=== PATIENT | female | born 1985 | race Caucasian/White ===

== ENCOUNTER → 2017-01-04 | Outpatient (CLI) | payer BC, OTHER ==
[~2017-01-04] MED LIST: ACET-1256 PO; ALBU4TAB10 PO; APRI28 PO; BACLOFEN IT; CITA20TA4 PO; CLON1INJ2; FLUT0.15; FRS/40 PO; HYDR-3126 PO; IBUP-1450 PO; LACT10SO17 PO; LOVA40TA4 PO; MULT-506 PO; OXYC1TAB3 PO; POTA20TA16 PO; VNTHFA/IN INH; [UNRECOGNIZED DRUG - OTHER]
--- NOTE | 2017-01-04 12:49 | DIAGNOSTIC IMAGING REPORT ---
THORACOLUMBAR SPINE 2 VIEWS CLINICAL HISTORY: Fatigue, spasticity, CEREBRAL PALSY pain COMPARISON STUDY: 05/03/2016 FINDINGS: Moderate degenerative change throughout the entire lumbar region. 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 Infusion pump overlying the left abdominal region unchanged. No acute or interval finding. Lumbar scoliosis. IMPRESSION: Degenerative and congenital changes as described. No acute or interval process. Electronically signed by: Dilshad Perez M.D. 01/04/2017 12:47 PM Dictated Date/Time: 01/04/2017 12:45 PM
== END | disposition home or self-care (01) ==
LOC: C.RADBC 11:48
PROVIDERS: ATTEND Physician Assistant
DX: R53.83 Other fatigue (principal); G80.1 Spastic diplegic cerebral palsy

== ENCOUNTER 2017-04-25 07:18 | Day surgery (SDC) | payer BC, OTHER ==
[2017-04-18 13:15] LABS: BASO % 0.2 %; BASO ABS # 0.02 K/uL (0-0.2); COMPLETE YES; EOS % 0.7 %; HEMATOCRIT 39.1 % (37-47); IG% 0.2 %; LYMPH % 23.4 %; MEAN CELL VOLUME 88.9 fL (80-100); MEAN CORPUSCULAR HEMOGLOBIN 29.3 pg (25-34); MEAN PLATELET VOLUME 11.5 fL (7.4-10.4); MONO % 6.7 %; NEUT % 68.8 %; PLATELET COUNT 324 K/uL (130-400); WHITE BLOOD COUNT 9.84 K/uL (4.8-10.8)
[2017-04-19 12:34] LABS: URINE APPEARANCE CLEAR (CLEAR); URINE BILIRUBIN NEG (NEG); URINE COLOR YELLOW; URINE EPITHELIAL CELL AUTO >30 /lpf (0-5); URINE NITRITE NEG (NEG); UROBILINOGEN NEG (NEG)
[2017-04-19 12:42] LABS: MANUAL MICROSCOPIC REQUIRED? NO; REVIEW REQ? YES
[2017-04-19 12:54] LABS: URINE MUCUS PRESENT (NONE PRSENT)
--- NOTE | 2017-04-24 14:45 | History and Physical ---
History & Physical Date of Service Apr 24, 2017. History & Physical Plan of care discussed with Dr. Buckley CHIEF COMPLAINT: Intractable rigidity and spasticity of extremities HISTORY OF PRESENT ILLNESS: Anna Harrison is a 32 year old white female that has a chronic history of rigidity and spasticity of her extremities secondary to cerebral palsy. Patient is wheelchair bound any has significant limitation into her ADL activities due to her symptoms. She has an intrathecal Baclofen pump implanted which is controlling the spasticity fairly well. Patient does also have complex regional pain syndrome described as a burning, neuropathic pain in her bilateral distal upper and lower extremities, and in non-dermatomal fashion. Patient has tried Percocet, Fentanyl, and Butrans without any significant pain relief. Patient denies any constitutional complaints or extremity weakness. PAST MEDICAL HISTORY: 1. Cerebral palsy 2. Neurogenic bladder 3. Depressive disorder PAST SURGICAL HISTORY: 1. History of jaw surgery 2. History of eye surgery 2 3. Right hip tendon release 4. History of cholecystectomy 5. Dorsal rizotomy SOCIAL HISTORY: Mrs. Harrison is a student. She lives alone and is a former smoker. Occasional alcohol use. No illicit drug use. ALLERGIES: Adhesives, chloral hydrate, fentanyl, gabapentin, latex, midazolam, morphine, Zofran, pentobarbital, phenytoin, sulfa antibiotics MEDICATIONS: 1. control pills: 1 tablet daily 2. Albuterol inhaler 1 puff every 4 hours as needed 3. Celexa 40 mg at bedtime 4. Flonase 2 sprays in each nostril daily 5. Lasix 40 mg twice daily 6. Multivitamin one tablet daily 7. Potassium chloride 20 mEq daily REVIEW OF SYSTEMS: Denies any constitutional, cardiac, pulmonary, neurological, GI, , extremity, endocrine, neuro, ENT, dermatological, or musculoskeletal complaints other than stated in HPI PHYSICAL EXAMINATION: VITAL SIGNS: Per admission GENERAL: Anna Harrison is a 32-year-old white female that appears her stated age. She is sitting quietly in a motorized wheelchair, in no acute distress. Speech and cognition is intact. Mood and affect is appropriate. HEAD: Normocephalic; atraumatic. EYES: Pupils are round, equal, and reactive to light ENT: No external ear discharge or lesions. No rhinorrhea or epistaxis. No mucosal lesions. NECK: Full ROM; trachea is midline; no TTP; no cervical lymphadenopathy. PULM: Clear to auscultation. No wheezes, rales, or rhonchi. CHEST: Regular chest respiration and excursion. EXTREMITIES: Occasional spontaneous upper and lower extremity spasticity. There is flexion rigidity of the lower extremities. Knees can be extended to 75 degrees. There is spasm noted of the bilateral gastrocnemius and quadriceps. Mild edema of the bilateral legs. Legs are erythematous, shiny, and cold to the touch. Decreased sensation of the bilateral legs. BACK: No midline or facet tenderness. No SI joint tenderness. SKIN: No lesions, erythema, or rashes noted. ASSESSMENT: 1. Chronic intractable pain secondary to complex region pain syndrome of the bilateral lower extremities 2. 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 As the patient has developed complex regional pain syndrome in to the bilateral lower extremities and is experiencing significant side effects from pain medications including Percocet, fentanyl, and Butrans patches it is recommended that the patient undergo an intrathecal trial of hydromorphone for possible increased pain relief. Should the patient receive adequate pain relief from the trial, hydromorphone may be then introduced into the pump to provide pain relief. Risks and benefits reviewed with the patient. Procedure was explained to the patient and she understands. Patient would like to proceed with the procedure. She will undergo the intrathecal hydromorphone trial on 04/25/17.
[2017-04-25] VITALS (8 sets, daily range): BP systolic 133–169; BP diastolic 78–92; PULSE 84–116; TEMP 36.9–37.2; O2SAT 93–98; Ht 161.3 cm; Wt 64.0 kg
[~2017-04-25] VITALS: Ht 161.3 cm; Wt 64.0 kg
[~2017-04-25 07:18] MED LIST changes: -ACET-1256 PO; -CLON1INJ2; -HYDR-3126 PO; +HYDROMORPHONE HCL IV SCH; -IBUP-1450 PO; -LACT10SO17 PO; -LOVA40TA4 PO; -OXYC1TAB3 PO; +VANCOMYCIN 1GM/270ML NSS IV SCH; -VNTHFA/IN INH; -[UNRECOGNIZED DRUG - OTHER]
[2017-04-25] MEDS ORDERED: HYDROMORPHONE HCL IV SCH (07:30)
[2017-04-25] MEDS ORDERED: HYDROMORPHONE HCL IT SCH (07:30)
[2017-04-25] MEDS ORDERED: VNTHFA/IN INH (07:55)
[2017-04-25] MEDS ORDERED: SODIUM CHLORIDE 0.9% INJ 10 ML VIAL ONE (08:26)
[2017-04-25] MEDS ORDERED: LIDOCAINE HCL 2% 2 ML VIAL (20MG/ML) ONE (08:39)
[2017-04-25] MEDS ORDERED: LACTATED RINGER'S 1000ML 1,000 ML IV SCH (09:23)
[2017-04-25] MEDS ORDERED: NALOXONE HCL 0.4 MG/1 ML VIAL/CARP IV PRN (09:30)
[2017-04-25] MEDS ORDERED: NURSING VERBAL MED ORDER ONE (11:30)
--- NOTE | 2017-04-25 13:57 | Discharge Instructions ---
Discharge Instructions Date of Service Apr 25, 2017. Visit Reason for Visit: Complex Regional Pain Syndrome;Z01.812,G80.9,G90.5 Discharge Discharge Diagnosis / Problem: Complex Regional Pain Syndrome Discharge Goals Goal(s): Decrease discomfort, Improve function Activity Recommendations Activity Recommendations: No Limitations Anesthesia . Post Anesthesia Instructions: If you have had General Anesthesia or IV Sedation: * Do not drive today. * Resume driving when surgeon permits. * Do not make important decisions or sign legal documents today. * Call surgeon for: * Temperature elevations greater than 101 degrees F. * Uncontrollable pain. * Excessive bleeding. * Persistent nausea and vomiting. * Medication intolerance (nausea, vomiting or rash). * For nausea and vomiting use only clear liquids such as: tea, soda, bouillon until nausea subsides, then gradually increase diet as tolerated. * If you have any concerns or questions, call your surgeon's office. If physician is unavailable and it is an emergency, call 911 or go to the nearest emergency room. . Instructions Instructions / Follow-Up . * Change dressings daily. Apply sterile dry gauze. * Call [facility] [phone] or go to the nearest emergency room if he experience high fevers, new back pain, new neurological symptoms such as numbness or weakness in the lower extremity or new bowel bladder incontinence. Also of call if he experience a headache that is positional. * Wear abdominal binder. * No showers for 3 days. * Resume normal activity. No repetitive bending, twisting or reaching overhead for 2 weeks. Do not lift more than 5 pounds for 2 weeks. . Follow-Up Follow-Up: 1 week in office for wound check Diet Recommendations Home Diet: no limitations Pending Studies Studies pending at discharge: no Medical Emergencies . Who to Call and When: Medical Emergencies: If at any time you feel your situation is an emergency, please call 911 immediately. . Non-Emergent Contact Non-Emergency issues call your: Primary Care Provider Call Non-Emergent contact if: temperature is above 101, wound has increased pain . . "Provider Documentation" section prepared by Gwyn Buckley. . [place] Drug Monitoring Program Search Results: patient reviewed within database
--- NOTE | 2017-04-25 14:07 | Pain Clinic Procedure Note ---
Pain Management Procedure Note Date of Procedure Apr 25, 2017. Procedure Description Procedure: Lumbar puncture hydromorphone trial Procedure Time Out: side/site verified, patient ID confirmed, correct procedure Consent Obtained: written Time Procedure Started: 830 Performed By: Dr. Buckley Indications: diagnostic Contraindications: none Pre Procedure Vital Signs Date Time Temp Pulse Resp B/P (MAP) Pulse Ox O2 Delivery O2 Flow Rate FiO2 04/25/17 09:12 94 20 138/92 04/25/17 09:09 96 18 04/25/17 07:58 36.9 84 20 140/86 (104) 94 Room Air ASA Class: 3 Description: INTRATHECAL HYDROMORPHONE TRIAL Hydromorphone 0.125 mg in PFNSS given at 8:50 at approximate L3/L4 level after sterile prep. Diagnosis: Complex Regional Pain Syndrome. Intrathecal injection level: Approximate L3/L4 Surgeon: Dr. Buckley EBL: 0 Complications: None Medications injected: Hydromorphone 0.125 mg Prior to starting, the Patients diagnosis and the procedure were reviewed with the patient in detail. Possible risks, complications and alternative therapies were also reviewed. Patients questions were answered. Informed consent was obtained. Allergies and medication list was reviewed. The patient was brought to the operating room and placed in prone position on the table. Immediately prior to starting the procedure, a time out was conducted with the staff and the patient where the patient was identified. Lumbosacral area was prepped with DuraPrep and Betadine solution. Sterile drapes were applied. Skin and soft tissue over the spinous L3 spinous with 1 mL of 1% Xylocaine using a 25 gauge needle. Midline approach was utilized. A 24 gauge, 3.5 inch Pjunk spinal needle was then inserted through the anesthetized area and advanced under fluoroscopic guidance through the intraspinous ligaments. C-arm was then turned to a true lateral view and the needle was advanced through the ligamentum flavum into the intrathecal. Upon entering the intrathecal space the patient did not experience pain or paresthesia. Bevel of the needle was directed in the cephalad direction. Next, 0.125 mg hydromorphone was injected via the the needle gradually. Patient did not experience any pain, paresthesia or discomfort throughout the injection. Needle was withdrawn. Hemostasis was noted. Sterile dressing was applied. Patient was then taken to the recovery room. Complications: none Patient Tolerated Procedure: well Post-Procedure Vital Signs: Vital Signs Date Time Temp Pulse Resp B/P (MAP) Pulse Ox O2 Delivery O2 Flow Rate FiO2 04/25/17 09:12 94 20 138/92 04/25/17 07:58 36.9 94 Room Air Discharge Instructions: reviewed & understood
== END 2017-04-25 15:15 | disposition home or self-care (01) ==
LOC: C.ACU 07:18
PROVIDERS: ATTEND Anesthesiology
DX: G90.50 Complex regional pain syndrome I, unspecified (principal); G80.9 Cerebral palsy, unspecified; N31.9 Neuromuscular dysfunction of bladder, unspecified; F32.9 Major depressive disorder, single episode, unspecified; Z90.49 Acquired absence of other specified parts of digestive tract; Z87.891 Personal history of nicotine dependence; Z79.3 Long term (current) use of hormonal contraceptives

== ENCOUNTER 2017-05-03 17:07 | Emergency (ER) | payer BC, OTHER ==
[~2017-05-03] VITALS: Ht 152.4 cm; Wt 65.0 kg
[~2017-05-03 17:07] MED LIST changes: -ALBU4TAB10 PO; -HYDROMORPHONE HCL IV SCH; -VANCOMYCIN 1GM/270ML NSS IV SCH; +VNTHFA/IN INH
[2017-05-03 17:13] VITALS: TEMP 36.7; Ht 152.4 cm; Wt 65.0 kg
[2017-05-03] MEDS ORDERED: TRAMADOL HCL 50 MG TAB PO STA (17:29)
[2017-05-03] MEDS ORDERED: HYDROmorphone INJ 1 MG/ML SYR IM ONE (17:30)
[2017-05-03] MEDS ORDERED: HYDROmorphone INJ 0.5 MG/0.5 ML SYR IV STA ×3 (17:39→23:31)
[2017-05-03] MEDS ORDERED: DiphenhydrAMINE HCL 50 MG/ML VIAL IV STA (17:39)
[2017-05-03 19:05] LABS: BASO % 0.2 %; BASO ABS # 0.02 K/uL (0-0.2); COMPLETE YES; EOS % 0.7 %; HEMATOCRIT 41.4 % (37-47); IG% 0.2 %; LYMPH % 18.5 %; LYMPH ABS # 2.35 K/uL (1.2-3.4); MEAN CELL VOLUME 88.8 fL (80-100); MEAN CORPUSCULAR HEMOGLOBIN 28.3 pg (25-34); MEAN CORPUSCULAR HGB CONC 31.9 g/dl (32-36); MEAN PLATELET VOLUME 11.3 fL (7.4-10.4); MONO % 5.9 %; NEUT % 74.5 %; PLATELET COUNT 409 K/uL (130-400); RED BLOOD COUNT 4.66 M/uL (4.2-5.4); WHITE BLOOD COUNT 12.69 K/uL (4.8-10.8)
--- NOTE | 2017-05-03 19:11 | DIAGNOSTIC IMAGING REPORT ---
CHEST ONE VIEW PORTABLE CLINICAL HISTORY: 32 years-old Female presenting with fall . TECHNIQUE: Portable upright AP view of the chest was obtained. COMPARISON: 01/16/2015. FINDINGS: Cardiomediastinal silhouette normal. Lungs and pleural spaces clear. Osseous structures normal. celebrity chef entrepreneur media personality projects over the upper abdomen. IMPRESSION: 1. No acute cardiopulmonary disease. Electronically signed by: Sam Womack M.D. 05/03/2017 7:09 PM Dictated Date/Time: 05/03/2017 7:07 PM
--- NOTE | 2017-05-03 19:13 | DIAGNOSTIC IMAGING REPORT ---
R FEMUR 2 VIEWS ROUTINE CLINICAL HISTORY: 32 years-old Female presenting with r leg pain . TECHNIQUE: Frontal and lateral views of the right femur were obtained. COMPARISON: None. FINDINGS: Buttress plate and screw fixation of the right femoral neck and proximal metaphysis. Chronic deformity of the right femur with coxa valga deformity and chronic subluxation of the right hip joint. This may be due to dysplasia of the acetabulum or chronic posttraumatic or degenerative deformity. Visualized portion of the bony pelvis demonstrates osteopenia but no fracture. Obliquely oriented fracture of the distal femoral diaphysis with one half shaft width medial and posterior displacement of the distal fracture fragment. 2.6 cm of foreshortening noted. IMPRESSION: Obliquely oriented fracture of the distal femoral diaphysis with one half shaft width displacement and foreshortening as above. Electronically signed by: Sam Womack M.D. 05/03/2017 7:12 PM Dictated Date/Time: 05/03/2017 7:09 PM
[2017-05-03] MEDS ORDERED: SODIUM CHLORIDE 0.9% 1000ML 1,000 ML IV STA ×3 (19:26→23:31)
--- NOTE | 2017-05-03 19:26 | DIAGNOSTIC IMAGING REPORT ---
PELVIS 1 OR 2 VIEW ROUTINE CLINICAL HISTORY: 32 years-old Female presenting with r leg pain, fall. TECHNIQUE: Single frontal view the pelvis was obtained. COMPARISON: None. FINDINGS: Buttress plate and screw fixation of the right femoral neck and proximal metaphysis. 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 Dysplastic appearance of the right acetabulum may be congenital or posttraumatic or degenerative. Similar dysplastic appearance of the left acetabulum with absence of the left femoral head and neck, possibly postsurgical or posttraumatic. Osteopenia limits evaluation for nondisplaced fracture. Sacroiliac joints and pubic symphysis intact. No gross evidence of a fracture of the bony pelvis. An medical record consultant projects over the left lower quadrant. Mild gaseous distention of bowel. Moderate stool burden noted in the cecum or rectum. IMPRESSION: 1. Allowing for osteopenia and chronic deformities, no evidence of acute osseous injury of the bony pelvis. 2. Chronic deformities of the bilateral hips and acetabula as above. Electronically signed by: Sam Womack M.D. 05/03/2017 7:25 PM Dictated Date/Time: 05/03/2017 7:22 PM
--- NOTE | 2017-05-03 19:27 | History and Physical ---
History & Physical Date & Time of Service: May 03, 2017 at 19:27 Chief Complaint: Fall/ Rt Knee Pain Primary Care Physician: Joseluis Gomes M.D. (MEDICAL) Past Medical/Surgical History Medical Problems: (1) Anxiety Status: Chronic (2) Cerebral palsy Status: Chronic (3) Chronic pain Status: Chronic (4) Depression Status: Chronic Surgical Problems: (1) Amblyopia surgery Status: Chronic (2) H/O release of tendon Status: Chronic (3) History of mandibular surgery Status: Chronic (4) Hx of cholecystectomy Status: Chronic Family History No pertinent family history Social History Smoking Status: Never Smoker Immunizations History of Influenza Vaccine: Yes Influenza Vaccine Date: Apr 22, 2015 History of Tetanus Vaccine?: Yes Tetanus Immunization Date: Sep 23, 2013 Allergies Coded Allergies: Fentanyl (Verified Allergy, Severe, anaphylaxis, hallucinations, 05/03/17) Latex (Verified Allergy, Severe, SOB, THROAT SWELLS, 05/03/17) Midazolam (Verified Allergy, Severe, Anaphylaxis, 05/03/17) Morphine (Verified Allergy, Severe, halluncinations, rash, difficulty breathing, 05/03/17) Pentobarbital (Verified Allergy, Severe, ANAPHYLACTIC RXN, 04/25/17) Chloral Hydrate (Verified Allergy, Mild, THROAT CLOSES, 04/25/17) Sulfa Antibiotics (Verified Allergy, Mild, RASH, 05/03/17) Adhesives (Unverified Allergy, Unknown, RASH REDNESS, 05/03/17) Phenobarbital (Unverified Allergy, Unknown, UNKNOWN, 05/03/17) Ondansetron (Verified Adverse Reaction, Mild, nausea, 05/03/17) Gabapentin (Verified Adverse Reaction, Unknown, Hallucinates, 05/03/17) Phenytoin (Verified Adverse Reaction, Unknown, Hallucinating,RASH, ) Home Medications Scheduled Citalopram Hydrobromide (Citalopram Hydrobromide), 2 TAB PO HS Ethinyl Estrad/Desogestrel (Apri), 1 TAB PO DAILY Fluticasone Propionate (Nasal) (Flonase Allergy Relief), 2 SPRAYS NA DAILY Furosemide (Lasix), 40 MG PO BID Multivitamin (Multivitamin), 1 TAB PO DAILY Potassium Ext Rel (Klor-Con), 20 MEQ PO DAILY [baclofen IT 700 MCG], 700 MCG IT DAILY Scheduled PRN Albuterol Hfa (Ventolin Hfa), 2 PUFFS INH QID PRN for Shortness of Breath Physical Exam Vital Signs Date Time Temp Pulse Resp B/P (MAP) Pulse Ox O2 Delivery O2 Flow Rate FiO2 05/03/17 19:16 135 24 164/115 99 Room Air 05/03/17 19:05 124 05/03/17 17:13 36.7 108 18 164/116 100 Room Air Diagnostics Laboratory Results Results Past 24 Hours Test 05/03/17 18:10 Range/Units White Blood Count 12.69 4.8-10.8 K/uL Red Blood Count 4.66 4.2-5.4 M/uL Hemoglobin 13.2 12.0-16.0 g/dL Hematocrit 41.4 37-47 % Mean Corpuscular Volume 88.8 80-100 fL Mean Corpuscular Hemoglobin 28.3 25-34 pg Mean Corpuscular Hemoglobin Concent 31.9 32-36 g/dl Platelet Count 409 130-400 K/uL Mean Platelet Volume 11.3 7.4-10.4 fL Neutrophils (%) (Auto) 74.5 % Lymphocytes (%) (Auto) 18.5 % Monocytes (%) (Auto) 5.9 % Eosinophils (%) (Auto) 0.7 % Basophils (%) (Auto) 0.2 % Neutrophils # (Auto) 9.45 1.4-6.5 K/uL Lymphocytes # (Auto) 2.35 1.2-3.4 K/uL Monocytes # (Auto) 0.75 0.11-0.59 K/uL Eosinophils # (Auto) 0.09 0-0.5 K/uL Basophils # (Auto) 0.02 0-0.2 K/uL RDW Standard Deviation 46.8 36.4-46.3 fL RDW Coefficient of Variation 14.3 11.5-14.5 % Immature Granulocyte % (Auto) 0.2 % Immature Granulocyte # (Auto) 0.03 0.00-0.02 K/uL
[2017-05-03 19:36] LABS: ALKALINE PHOSPHATASE 81 U/L (45-117); ALT/SGPT 39 U/L (12-78); AST/SGOT 23 U/L (15-37); BLOOD UREA NITROGEN 9 mg/dl (7-18); BUN/CREATININE RATIO 18.4 (10-20); CALCIUM 8.5 mg/dl (8.5-10.1); CARBON DIOXIDE 24 mmol/L (21-32); CHLORIDE 106 mmol/L (98-107); CREATININE 0.49 mg/dl (0.60-1.20); GLUCOSE 114 mg/dl (70-99); POTASSIUM 3.9 mmol/L (3.5-5.1); SODIUM 139 mmol/L (136-145)
[2017-05-03] MEDS ORDERED: LORAZEPAM 2 MG/ML 1 ML VIAL IV STA ×2 (20:08→21:52)
[2017-05-03] MEDS ORDERED: LORAZEPAM 2 MG/ML 1 ML VIAL ONE (20:49)
[2017-05-03 22:29] LABS: HEMATOCRIT 36.7 % (37-47)
--- NOTE | 2017-05-03 22:58 | EMERGENCY ROOM VISIT NOTE ---
History Report prepared by Kayode: Mike Wheat Under the Supervision of: Dr. Donell Cm D.O. First contact with patient: 17:10 Stated Complaint: FALL/ RT KNEE PAIN History of Present Illness The patient is a 32 year old female who presents to the Emergency Room with complaints of right knee pain that began 1 hour ago. She has a medical history of cerebral palsy. At this time, the patient experienced a fall onto her right knee. She was being transferred by her caregiver and fell less than 3 feet. She is having right knee pain with radiation into her thigh and calf. She denies any head trauma, headache, neck pain, chest pain, back pain, or arm pain. She denies any other symptoms. She denies any blood thinners. She does have a intrathecal Dilaudid pump. Patient admits she has no allergy to fentanyl , morphine and notes that when she gets Dilaudid IV she feels very itchy. She denies any other complaints. She does admit to having contracture in her right lower extremity and notes that it is currently worse now. Source of History: patient Onset: 1 hour ago Position: knee (right) Symptom Intensity: moderate Quality: ache Timing: constant Associated Symptoms: No LOC, No headache, No neck pain, No chest pain, No abdominal pain, No back pain Note: Her pain radiates to her thigh and calf. Review of Systems See HPI for pertinent positives & negatives. A total of 10 systems reviewed and were otherwise negative. Past Medical & Surgical Medical Problems: (1) Anxiety (2) Cerebral palsy (3) Chronic pain (4) Depression Surgical Problems: (1) Amblyopia surgery (2) H/O eye surgery (3) H/O release of tendon (4) History of mandibular surgery (5) Hx of cholecystectomy (6) jaw surgery Social History Problems: (1) Former smoker Family History No pertinent family history Social History Smoking Status: Former Smoker Alcohol Use: none Drug Use: none Housing Status: lives alone Current/Historical Medications Scheduled Citalopram Hydrobromide (Citalopram Hydrobromide), 2 TAB PO HS Ethinyl Estrad/Desogestrel (Apri), 1 TAB PO DAILY Fluticasone Propionate (Nasal) (Flonase Allergy Relief), 2 SPRAYS NA DAILY Furosemide (Lasix), 40 MG PO BID Multivitamin (Multivitamin), 1 TAB PO DAILY Potassium Ext Rel (Klor-Con), 20 MEQ PO DAILY [baclofen IT 700 MCG], 700 MCG IT DAILY Scheduled PRN Albuterol Hfa (Ventolin Hfa), 2 PUFFS INH QID PRN for Shortness of Breath Allergies Coded Allergies: Fentanyl (Verified Allergy, Severe, anaphylaxis, hallucinations, 05/03/17) Latex (Verified Allergy, Severe, SOB, THROAT SWELLS, 05/03/17) Midazolam (Verified Allergy, Severe, Anaphylaxis, 05/03/17) Morphine (Verified Allergy, Severe, halluncinations, rash, difficulty breathing, 05/03/17) Pentobarbital (Verified Allergy, Severe, ANAPHYLACTIC RXN, 04/25/17) Chloral Hydrate (Verified Allergy, Mild, THROAT CLOSES, 04/25/17) Sulfa Antibiotics (Verified Allergy, Mild, RASH, 05/03/17) Adhesives (Unverified Allergy, Unknown, RASH REDNESS, 05/03/17) Phenobarbital (Unverified Allergy, Unknown, UNKNOWN, 05/03/17) Ondansetron (Verified Adverse Reaction, Mild, nausea, 05/03/17) Gabapentin (Verified Adverse Reaction, Unknown, Hallucinates, 05/03/17) Phenytoin (Verified Adverse Reaction, Unknown, Hallucinating,RASH, ) Physical Exam Vital Signs Date Time Temp Pulse Resp B/P (MAP) Pulse Ox O2 Delivery O2 Flow Rate FiO2 05/03/17 21:48 129 20 151/109 97 Room Air 05/03/17 19:16 135 24 164/115 99 Room Air 05/03/17 19:05 124 05/03/17 17:13 36.7 108 18 164/116 100 Room Air Physical Exam GENERAL: Lying on the bed, alert, well appearing, well nourished, moderate distress, non-toxic HEAD: NC/AT EYE EXAM: normal conjunctiva OROPHARYNX: no exudate, no erythema, lips, buccal mucosa, and tongue normal and mucous membranes are moist NECK: supple, no nuchal rigidity, no adenopathy, non-tender LUNGS: Clear to auscultation. Normal chest wall mechanics HEART: Tachycardic rate, regular rhythm, no murmurs, S1 normal and S2 normal CHEST: Stable to compression anteriorly and posteriorly ABDOMEN: abdomen soft, non-tender, normo-active bowel sounds, no masses, no rebound or guarding. BACK: Back is symmetrical on inspection and there is no deformity, no midline tenderness, no CVA tenderness. PELVIS: Stable to compression anteriorly and posteriorly SKIN: no rashes and no bruising UPPER EXTREMITIES: Full range of motion of left upper extremity without tenderness. LOWER EXTREMITIES: RLE tenderness to palpation from mid femur to right knee. DP is 2 out of 4. Gross sensation intact. No tenderness with movement of left lower shoulder. NEURO EXAM: Normal sensorium, contracture in right upper extremity and right lower extremity. Medical Decision & Procedures ER Provider Diagnostic Interpretation: Radiology results as stated below per my review and the radiologist's interpretation: PELVIS 1 OR 2 VIEW ROUTINE CLINICAL HISTORY: 32 years-old Female presenting with r leg pain, fall. TECHNIQUE: Single frontal view the pelvis was obtained. COMPARISON: None. FINDINGS: Buttress plate and screw fixation of the right femoral neck and proximal metaphysis. 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 Dysplastic appearance of the right acetabulum may be congenital or posttraumatic or degenerative. Similar dysplastic appearance of the left acetabulum with absence of the left femoral head and neck, possibly postsurgical or posttraumatic. Osteopenia limits evaluation for nondisplaced fracture. Sacroiliac joints and pubic symphysis intact. No gross evidence of a fracture of the bony pelvis. An medical collector projects over the left lower quadrant. Mild gaseous distention of bowel. Moderate stool burden noted in the cecum or rectum. IMPRESSION: 1. Allowing for osteopenia and chronic deformities, no evidence of acute osseous injury of the bony pelvis. 2. Chronic deformities of the bilateral hips and acetabula as above. Electronically signed by: Sam Womack M.D. 05/03/2017 7:25 PM Dictated Date/Time: 05/03/2017 7:22 PM R FEMUR 2 VIEWS ROUTINE CLINICAL HISTORY: 32 years-old Female presenting with r leg pain . TECHNIQUE: Frontal and lateral views of the right femur were obtained. COMPARISON: None. FINDINGS: Buttress plate and screw fixation of the right femoral neck and proximal metaphysis. Chronic deformity of the right femur with coxa valga deformity and chronic subluxation of the right hip joint. This may be due to dysplasia of the acetabulum or chronic posttraumatic or degenerative deformity. Visualized portion of the bony pelvis demonstrates osteopenia but no fracture. Obliquely oriented fracture of the distal femoral diaphysis with one half shaft width medial and posterior displacement of the distal fracture fragment. 2.6 cm of foreshortening noted. IMPRESSION: Obliquely oriented fracture of the distal femoral diaphysis with one half shaft width displacement and foreshortening as above. Electronically signed by: Sam Womack M.D. 05/03/2017 7:12 PM Dictated Date/Time: 05/03/2017 7:09 PM CHEST ONE VIEW PORTABLE CLINICAL HISTORY: 32 years-old Female presenting with fall . TECHNIQUE: Portable upright AP view of the chest was obtained. COMPARISON: 01/16/2015. FINDINGS: Cardiomediastinal silhouette normal. Lungs and pleural spaces clear. Osseous structures normal. company driver projects over the upper abdomen. IMPRESSION: 1. No acute cardiopulmonary disease. Electronically signed by: Sam Womack M.D. 05/03/2017 7:09 PM Dictated Date/Time: 05/03/2017 7:07 PM Laboratory Results 05/03/17 18:10 Red Blood Count 4.66, Mean Corpuscular Volume 88.8, Mean Corpuscular Hemoglobin 28.3, Mean Corpuscular Hemoglobin Concent 31.9, Mean Platelet Volume 11.3, Neutrophils (%) (Auto) 74.5, Lymphocytes (%) (Auto) 18.5, Monocytes (%) (Auto) 5.9, Eosinophils (%) (Auto) 0.7, Basophils (%) (Auto) 0.2, Neutrophils # (Auto) 9.45, Lymphocytes # (Auto) 2.35, Monocytes # (Auto) 0.75, Eosinophils # (Auto) 0.09, Basophils # (Auto) 0.02 05/03/17 22:13 05/03/17 18:10 Test 05/03/17 18:10 White Blood Count 12.69 K/uL (4.8-10.8) Red Blood Count 4.66 M/uL (4.2-5.4) Hemoglobin 13.2 g/dL (12.0-16.0) Hematocrit 41.4 % (37-47) Mean Corpuscular Volume 88.8 fL (80-100) Mean Corpuscular Hemoglobin 28.3 pg (25-34) Mean Corpuscular Hemoglobin Concent 31.9 g/dl (32-36) Platelet Count 409 K/uL (130-400) Mean Platelet Volume 11.3 fL (7.4-10.4) Neutrophils (%) (Auto) 74.5 % Lymphocytes (%) (Auto) 18.5 % Monocytes (%) (Auto) 5.9 % Eosinophils (%) (Auto) 0.7 % Basophils (%) (Auto) 0.2 % Neutrophils # (Auto) 9.45 K/uL (1.4-6.5) Lymphocytes # (Auto) 2.35 K/uL (1.2-3.4) Monocytes # (Auto) 0.75 K/uL (0.11-0.59) Eosinophils # (Auto) 0.09 K/uL (0-0.5) Basophils # (Auto) 0.02 K/uL (0-0.2) RDW Standard Deviation 46.8 fL (36.4-46.3) RDW Coefficient of Variation 14.3 % (11.5-14.5) Immature Granulocyte % (Auto) 0.2 % Immature Granulocyte # (Auto) 0.03 K/uL (0.00-0.02) Anion Gap 9.0 mmol/L (3-11) Est Creatinine Clear Calc Drug Dose 137.4 ml/min Estimated GFR () 148.4 Estimated GFR (Non- 128.0 BUN/Creatinine Ratio 18.4 (10-20) Calcium Level 8.5 mg/dl (8.5-10.1) Total Bilirubin 0.2 mg/dl (0.2-1) Direct Bilirubin < 0.1 mg/dl (0-0.2) Aspartate Amino Transf (AST/SGOT) 23 U/L (15-37) Alanine Aminotransferase (ALT/SGPT) 39 U/L (12-78) Alkaline Phosphatase 81 U/L (45-117) Total Protein 7.6 gm/dl (6.4-8.2) Albumin 3.1 gm/dl (3.4-5.0) Chemistry Specimen Hemolysis Laboratory results per my review. Medications Administered Medications (Trade) Dose Ordered Sig/Shanelle Route Start Time Stop Time Status Last Admin Dose Admin Hydromorphone HCl (Dilaudid Inj) 0.5 mg NOW STAT IV 05/03/17 17:39 05/03/17 17:40 DC 05/03/17 18:24 0.5 MG Diphenhydramine HCl (Benadryl Inj) 25 mg NOW STAT IV 05/03/17 17:39 05/03/17 17:40 DC 05/03/17 18:24 25 MG Sodium Chloride 1,000 ml @ 999 mls/hr Q1H1M STAT IV 05/03/17 19:26 05/03/17 21:26 DC 05/03/17 19:40 999 MLS/HR Lorazepam (Ativan Inj) 0.5 mg NOW STAT IV 05/03/17 20:08 05/03/17 21:27 DC 05/03/17 20:50 0.5 MG Hydromorphone HCl (Dilaudid Inj) 0.5 mg NOW STAT IV 05/03/17 21:04 05/03/17 21:28 DC 05/03/17 21:45 0.5 MG Lorazepam (Ativan Inj) 1 mg NOW STAT IV 05/03/17 21:52 05/03/17 22:02 DC 05/03/17 22:07 1 MG ECG Indication: tachycardia Rate (beats per minute): 135 Rhythm: sinus tachycardia Findings: nonspecific-ST abn (Lateral), other (Normal axis) ED Course ED COURSE: Vital signs were reviewed and showed hypertension and tachycardia. The patients medical record was reviewed The above diagnostic studies were performed and reviewed. ED treatments and interventions as stated above. 1710: The patient was evaluated in room B12. A complete history and physical examination was performed. 1730: Dilaudid Inj 1 mg IM 173: Ordered Benadryl Inj 25 mg IV, Dilaudid Inj 0.5 mg IV 1905: I discussed the patient's case with Dr. House of Orthopedics. He will follow up with the patient in the future. 1924: I discussed the patient's case with Dr. Heriberto Alcantara, at this time. They will be evaluating the patient for further management as an inpatient. 1999: The patient and her family would like her to be transferred to [facility] instead of being evaluated at [facility]. 2039: I spoke with [facility] at [facility]. They recommended the patient be transferred to their ER. 2044: The patient will take Ativan, but after would like to talk to pain management before receiving any further medications. 2048: Ordered Ativan Inj 2 mg .ROUTE 2048: Upon reevaluation, the patient is resting. I discussed my findings with the her and she understands and agrees with the treatment plan. Based on the patients age, coexisting illnesses, exam and lab findings the decision to treat as an inpatient was made. The patient remained stable while under my care. The patient will be transferred to [facility] to be evaluated by Dr. Woodruff in the ER for further management. Medical Decision Differential diagnoses include major intracranial, cervical, spinal, thoracic, abdominal, pelvic and neurologic injury. Fracture, contusion, sprain, strain, laceration, abrasions included as well. Patient is a 32-year-old female who presents to ER for for right hip pain. She is neurologically intact. She does have CP. Power of associate attorney is mom. X-rays show right distal femur fracture. She minutes that her contractures slightly worse on the right lower extremity since the fracture. Patient was updated at bedside. She was given IV Dilaudid small dose and Benadryl. Her request as she has an allergy to Dilaudid. She also has an allergy to fentanyl and morphine. She does have an intrathecal Dilaudid pump. She notes she touched base with pain management and requested that I touch base with them as well. I attempted to call him on multiple occasions including a cell phone but were unsuccessful. Patient was given IV Ativan to help relax her leg. She is resting comfortably but states she is having some pain. She is tachycardic favor secondary to the pain. CBC and BMP were unremarkable. Hemoglobin did drop from 13 to 11.7. Favor secondary to fluids. Initially attempted to the patient to admit to [facility] and patient was accepted to the hospitalist and orthopedics. Mom requested via phone transfer to [facility] tertiary care center. I instructed her that this is very difficult at this time of night as her medics are currently warranted down in [place]. Patient requested [facility] mom was eventually agreeable. Discussed with orthopedics and ER. Patient will be transferred via ALS to [facility] for right femur fracture. Medication Reconcilliation Current Medication List: was personally reviewed by me Blood Pressure Screening Patient's blood pressure: Elevated blood pressure Blood pressure disposition: Elevated BP felt to be situational Consults Time Called: 1899 Consulting Physician: Dr. House - Orthopedics Returned Call: 1905 We discussed the patient's case. The patient will follow up with him in the future. Additional Consults: Time Called: 1919 Consulted Physician: Dr. Heriberto Alcantara Returned Call: 1924 Additional Comments: I reviewed the patient's case with them. They will evaluate the patient for further management. Time Called: 2034 Consulted Physician: [facility] Returned Call: [phone] Additional Comments: We discussed the patient's case. They will be transferred to [facility] to be evaluated by Dr. Woodruff. Impression Primary Impression: Right femoral fracture Additional Impression: Cerebral palsy Scribe Attestation The scribe's documentation has been prepared under my direction and personally reviewed by me in its entirety. I confirm that the note above accurately reflects all work, treatment, procedures, and medical decision making performed by me. Departure Information Dispostion Transfer Acute Care Facility Referrals Joseluis Gomes M.D. (MEDICAL) (PCP) Problem Qualifiers Primary Impression: Right femoral fracture Encounter type: initial encounter Fracture type: closed Fracture morphology : oblique Fracture alignment: displaced Additional Impression: Cerebral palsy Cerebral palsy type: unspecified type Qualified Codes: G80.9 - Cerebral palsy, unspecified
[2017-05-03] MEDS ORDERED: HYDROmorphone INJ 0.5 MG/0.5 ML SYR ONE (23:35)
[2017-05-03 23:42] VITALS: BP 116/76; PULSE 128; O2SAT 98
== END 2017-05-03 23:43 | disposition short-term general hospital (02) ==
LOC: EDBD 17:07 → C.EDB 17:08
DX: S72.331A Displaced oblique fracture of shaft of right femur, initial encounter for closed fracture (principal); W19.XXXA Unspecified fall, initial encounter; Z96.89 Presence of other specified functional implants; G80.9 Cerebral palsy, unspecified; F41.9 Anxiety disorder, unspecified; G89.29 Other chronic pain; F32.9 Major depressive disorder, single episode, unspecified; Z90.49 Acquired absence of other specified parts of digestive tract; Z87.891 Personal history of nicotine dependence